=== PATIENT | female | born 1940 | race Caucasian/White ===

== ENCOUNTER 2019-03-22 21:31 | Observation (INO) | payer MEDICARE, OTHER ==
[~2019-03-22] VITALS: Ht 149.9 cm; Wt 91.8 kg
[2019-03-22] MEDS ORDERED: LASIX20 MG PO (21:51)
[2019-03-22] MEDS ORDERED: BENICAR40 MG PO (21:52)
[2019-03-22] MEDS ORDERED: K-TAB ER20 MEQ PO (21:53)
--- NOTE | 2019-03-23 03:21 | NUR ---
ASSESSMENT COMPLETE. PT A/OX4, DENIES CHEST PAIN, SOB, AND DYSPNEA AT THIS TIME. VSS, PT ON RA. PT ON TELE #6, GOING BETWEEN SINUS RHYTHM AND AFIB, SINUS MIRANDA AT TIMES. LUNG SOUNDS CLEAR, PT APPEARS COMFORTABLE, NO SIGN OF DISTRESS NOTED. CALL LIGHT IN REACH. PT SALINE LOCKED, IV SITE WNL. NO ADDITIONAL NEEDS.
--- NOTE | 2019-03-23 03:59 | NUR ---
INFORMED BY RENETTA GORE THAT PT REPORTS LEG CRAMPS. THIS RN IN ROOM TO ASSESS PT. PRN TLENOL OFFERED, PT KINDLY DECLINES AND STATES, "I HAVN'T TRIED TYLENOL, I USUALLY TAKE MAGNESIUM". WILL MONITOR DAYSHIFT RN AT REPORT TO ASK MD FOR PRN MED FOR CRAMPS. PT AGREES TO PLAN. NO ADDITIONAL NEEDS. CALL LIGHT IN REACH. CPOX IN PLACE, PT ON RA. O2 SAT AND HR WNL.
--- NOTE | 2019-03-23 05:03 | NUR ---
prn tylenol given for 4/10 pain in bilateral legs r/t cramps. no further needs, manual writer january in room to complete vs.
--- NOTE | 2019-03-23 05:34 | NUR ---
HELPED PT TO THE BATHROOM AND BACK TO BED. VITALS AND I&OS DONE AND CHARTED. BEDSIDE TABLE AND CALL LIGHT IN REACH.
--- NOTE | 2019-03-23 06:24 | NUR ---
PT ARRIVED TO THE UNIT AROUND 0200. PT A/OX4, VSS. PT ON TELE #6, SWAPS BETWEEN AFIB AND SINUS RHYTHM. NO SOB OR CHEST PAIN SINCE ARRIVAL. SBA, USES CALL LIGHT APPROPERAITELY. SALINE LOCKED. TYLENOL GIVEN X1 FOR PAIN R/T CRAMPS IN LEGS.
--- NOTE | 2019-03-23 07:20 | NUR ---
RECIEVED BEDSIDE REPORT FROM AMY DUONG. PT IN BED. PERSONAL SUPPLIES AND CALL LIGHT IN REACH.
--- NOTE | 2019-03-23 08:56 | NUR ---
PT IN BED, TOLERATED BREAKFAST WELL. DENIES PAIN, DENIES SHORTNESS OF BREATH. ALERT, ORIENTED X 4. DENIED NEEDS AT THIS TIME. PERSONAL SUPPLIES AND CALL LIGHT IN REACH.
[2019-03-23] MEDS ORDERED: METOPROLOL SUCC25 MG PO (11:07)
[2019-03-23] MEDS ORDERED: ASPIRIN325 MG PO (11:07)
--- NOTE | 2019-03-23 15:40 | EKG ---
[facility] [address] [place], [place] [address] Signed Atrial fibrillation with rapid ventricular response Cannot rule out Anterior infarct , age undetermined Abnormal ECG No previous ECGs available Confirmed by PANCHO ACOSTA DO ([id number]) on 03/23/2019 3:40:37 PM Electronically Signed By: PANCHO ACOSTA DO 03/23/19 1540 PATIENT NAME: TAMMY TY Electrocardiogram DATE OF : 38 PHYSICIAN: PANCHO ACOSTA DO REPORT #: [id number] REPORT IS CONFIDENTIAL AND NOT TO BE RELEASED WITHOUT AUTHORIZATION
== END 2019-03-23 12:50 | disposition home or self-care (01) ==
LOC: ED 21:31 → MS 03-23 02:11
PROVIDERS: ADMIT Student in an Organized Health Care Education/Training Program
DX: I48.91 Unspecified atrial fibrillation (principal); I10 Essential (primary) hypertension; F39 Unspecified mood [affective] disorder; Z79.82 Long term (current) use of aspirin; Z79.899 Other long term (current) drug therapy
CPT/HCPCS: 71045; 80053; 81001; 83735; 83880; 84443; 84484; 85025; 93005; 93010; 96374; 96375; 99285-25; G0378; J1650; J1940

== ENCOUNTER 2022-09-15 13:30 | Emergency (ER) | payer MEDICARE, OTHER ==
[~2022-09-15] VITALS: Ht 149.9 cm; Wt 98.0 kg
[~2022-09-15 13:30] MED LIST: ASPIRIN325 MG PO; BENICAR40 MG PO; K-TAB ER20 MEQ PO; LASIX20 MG PO; METOPROLOL SUCC25 MG PO
[2022-09-15] MEDS ORDERED: ELIQUIS5 MG PO (17:13)
[2022-09-15] MEDS ORDERED: GABAPENTIN300 MG PO (17:14)
[2022-09-15] MEDS ORDERED: SPIRONOLACTONE25 MG PO (17:15)
[2022-09-15] MEDS ORDERED: ELIQUIS2.5 MG PO (17:15)
[2022-09-15] MEDS ORDERED: PROPRANOLOL HCL60 MG PO (17:15)
[2022-09-15] MEDS ORDERED: PREDNISONE20 MG PO (18:46)
== END 2022-09-15 18:59 | disposition home or self-care (01) ==
LOC: ED 13:30
DX: M17.12 Unilateral primary osteoarthritis, left knee (principal); I10 Essential (primary) hypertension; Z79.899 Other long term (current) drug therapy; Z96.651 Presence of right artificial knee joint
CPT/HCPCS: 73560; 99283-25; J7512

== ENCOUNTER 2023-05-29 17:51 | Observation (INO) | payer MEDICARE, OTHER ==
[~2023-05-29] VITALS: Ht 149.9 cm; Wt 85.6 kg
--- OUTSIDE RECORDS SUMMARY | ~2023-05-29 | XMS | Continuity of Care Document ---
Demographics + + + | Address | [id number] [place] [address] | | | [place] [address] | + + + | Preferred Language | Unknown | + + + | Marital Status | | + + + | Hinduism Affiliation | Unknown | + + + | Race | White | + + + | Ethnic Group | Not or | + + + Author + + + | Author | [facility] | + + + | Organization | [facility] | + + + | Address | [address] | | | [place] [address] | + + + | Phone | | + + + Care Team Providers + + + + | Care Process Pumper Name | Role | Phone | + + + + Unavailable | Unavailable | + + + + Unavailable | Unavailable | + + + + Unavailable | Unavailable | + + + + Allergies and Intolerances + + + + + + | date | description | facility | reaction | severity | + + + + + + | (no date) | No Known | [facility] | (no reaction) | (no severity) | | | Allergies | | | | + + + + + + Encounters No information. Functional Status No information. Immunizations No information. Medications + + + + | date | description | facility | + + + + | 2022-09-16 00:00 | APIXABAN | [facility] | + + + + | 2023-04-06 00:00 | APIXABAN | [facility] | + + + + | 2022-09-16 00:00 | GABAPENTIN | [facility] | + + + + | 2023-04-06 00:00 | GABAPENTIN | [facility] | + + + + | 2022-09-15 00:00 | predniSONE | [facility] | + + + + | 2022-09-16 00:00 | SPIRONOLACTONE | [facility] | + + + + | 2023-04-06 00:00 | SPIRONOLACTONE | [facility] | + + + + | 2022-09-16 00:00 | OLMESARTAN MEDOXOMIL | [facility] | + + + + | 2023-04-06 00:00 | OLMESARTAN MEDOXOMIL | [facility] | + + + + | 2023-04-06 00:00 | DILTIAZEM HCL | [facility] | + + + + | 2022-09-16 00:00 | PROPRANOLOL HCL | [facility] | + + + + | 2023-04-06 00:00 | PROPRANOLOL HCL | [facility] | + + + + Problems + + + + | date | description | facility | + + + + | 2019-03-23 00:00 | New onset atrial | [facility] | | | fibrillation | | + + + + | 2019-03-23 00:00 | New onset atrial | [facility] | | | fibrillation | | + + + + | 2022-09-15 00:00 | Arthritis of left knee | [facility] | + + + + | 2022-09-15 00:00 | Arthritis of left knee | [facility] | + + + + | 2022-09-15 13:31 | Essential (primary) | [facility] | | | hypertension | | + + + + | 2022-09-15 13:31 | UNILATERAL PRIMARY | [facility] | | | OSTEOARTHRITIS, LEFT KNEE | | + + + + | 2022-09-15 13:31 | PAIN IN LEFT KNEE | [facility] | + + + + | 2022-09-15 13:31 | OTHER TEST CLERK (CURRENT) | [facility] | | | DRUG THERAPY | | + + + + | 2022-09-15 13:31 | 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 | | + + + + | 2023-04-06 00:00 | Atrial fibrillation with | [facility] | | | rapid ventricular response | | + + + + | 2023-04-06 00:00 | Sprain of left ankle | [facility] | + + + + | 2023-04-06 15:25 | Essential (primary) | [facility] | | | hypertension | | + + + + | 2023-04-06 15:25 | UNSPECIFIED ATRIAL | [facility] | | | FIBRILLATION | | + + + + | 2023-04-06 15:25 | PAIN IN LEFT ANKLE AND | [facility] | | | JOINTS OF LEFT FOOT | | + + + + | 2023-04-06 15:25 | SPRAIN OF UNSPECIFIED | [facility] | | | LIGAMENT OF LEFT ANKLE, | | | | INIT | | + + + + | 2023-04-06 15:25 | OTHER FALL ON SAME LEVEL, | [facility] | | | INITIAL ENCOUNTER | | + + + + | 2023-04-06 15:25 | OTHER JAIL (CURRENT) | [facility] | | | DRUG THERAPY | | + + + + Procedures No information. Results/Labs +--------+--------+ +---------+--------+---------+ | test | date | facility | value | unit | notes | +--------+--------+ +---------+--------+---------+ + + | Result panel 1 | + + + + + +-------+ + + | | 2023-04-06 | [facility] | 9.9 | (missing) | (missing) | | (unavailable | [facility]33[facility] | | | | + + + +-------+ + + + + | Result panel 2 | + + + + + +--------+ + + | | 2023-04-06 | [facility] | 78.8 | (missing) | (missing) | | (unavailable | [facility] | | | | + + + +--------+ + + + + | Result panel 3 | + + + + + +--------+ + + | | 2023-04-06 | [facility] | 13.6 | (missing) | (missing) | | (unavailable | [facility] | | | | + + + +--------+ + + + + | Result panel 4 | + + + + + +-------+ + + | | 2023-04-06 | [facility] | 6.2 | (missing) | (missing) | | (unavailable | [facility] | | | | + + + +-------+ + + + + | Result panel 5 | + + + + + +-------+ + + | | 2023-04-06 | [facility] | 0.8 | (missing) | (missing) | | (unavailable | [facility] | | | | + + + +-------+ + + + + | Result panel 6 | + + + + + +-------+ + + | | 2023-04-06 | [facility] | 0.6 | (missing) | (missing) | | (unavailable | [facility] | | | | + + + +-------+ + + + + | Result panel 7 | + + + + + +--------+ + + | | 2023-04-06 | [facility] | 4.57 | (missing) | (missing) | | (unavailable | [facility] | | | | + + + +--------+ + + + + | Result panel 8 | + + + + + +--------+ + + | | 2023-04-06 | [facility] | 14.1 | (missing) | (missing) | | (unavailable | [facility] | | | | + + + +--------+ + + + + | Result panel 9 | + + + + + +-------+---------+ + | | 2023-04-06 | [facility] | 142 | mg/dL | (missing) | | (unavailable | [facility] | | | | + + + +-------+---------+ + + + | Result panel 10 | + + + + + +------+---------+ + | | 2023-04-06 | [facility] | 24 | mg/dL | (missing) | | (unavailable | [facility] | | | | + + + +------+---------+ + + + | Result panel 11 | + + + + + +--------+---------+ + | | 2023-04-06 | [facility] | 1.13 | mg/dL | (missing) | | (unavailable | [facility] | | | | + + + +--------+---------+ + + + | Result panel 12 | + + + + + +------+ + + | | 2023-04-06 | [facility] | 48 | (missing) | (missing) | | (unavailable | [facility] | | | | + + + +------+ + + + + | Result panel 13 | + + + + + +---------+ + + | | 2023-04-06 | [facility] | 21.23 | (missing) | (missing) | | (unavailable | [facility] | | | | + + + +---------+ + + + + | Result panel 14 | + + + + + +-------+ + + | | 2023-04-06 | [facility] | 139 | (missing) | (missing) | | (unavailable | [facility] | | | | + + + +-------+ + + + + | Result panel 15 | + + + + + +--------+ + + | | 2023-04-06 | [facility] | 41.7 | (missing) | (missing) | | (unavailable | [facility] | | | | + + + +--------+ + + + + | Result panel 16 | + + + + + +-------+ + + | | 2023-04-06 | [facility] | 4.1 | (missing) | (missing) | | (unavailable | 1633:07 [facility] | | | | + + + +-------+ + + + + | Result panel 17 | + + + + + +-------+ + + | | 2023-04-06 | [facility] | 106 | (missing) | (missing) | | (unavailable | [facility] | | | | + + + +-------+ + + + + | Result panel 18 | + + + + + +------+ + + | | 2023-04-06 | [facility] | 25 | (missing) | (missing) | | (unavailable | [facility] | | | | + + + +------+ + + + + | Result panel 19 | + + + + + +--------+ + + | | 2023-04-06 | [facility] | 12.1 | (missing) | (missing) | | (unavailable | [facility] | | | | + + + +--------+ + + + + | Result panel 20 | + + + + + +-------+---------+ + | | 2023-04-06 | [facility] | 8.8 | mg/dL | (missing) | | (unavailable | [facility] | | | | + + + +-------+---------+ + + + | Result panel 21 | + + + + + +-------+---------+ + | | 2023-04-06 | [facility] | 1.9 | mg/dL | (missing) | | (unavailable | [facility] | | | | + + + +-------+---------+ + + + | Result panel 22 | + + + + + +-------+ + + | | 2023-04-06 | [facility] | 7.0 | (missing) | (missing) | | (unavailable | [facility] | | | | + + + +-------+ + + + + | Result panel 23 | + + + + + +-------+ + + | | 2023-04-06 | [facility] | 3.2 | (missing) | (missing) | | (unavailable | [facility] | | | | + + + +-------+ + + + + | Result panel 24 | + + + + + +-------+ + + | | 2023-04-06 | [facility] | 3.8 | (missing) | (missing) | | (unavailable | [facility] | | | | + + + +-------+ + + + + | Result panel 25 | + + + + + +--------+ + + | | 2023-04-06 | [facility] | 0.84 | (missing) | (missing) | | (unavailable | [facility] | | | | + + + +--------+ + + + + | Result panel 26 | + + + + + +--------+ + + | | 2023-04-06 | [facility] | 91.1 | (missing) | (missing) | | (unavailable | [facility] | | | | + + + +--------+ + + + + | Result panel 27 | + + + + + +-------+ + + | | 2023-04-06 | [facility] | 1.0 | (missing) | (missing) | | (unavailable | [facility] | | | | + + + +-------+ + + + + | Result panel 28 | + + + + + +------+ + + | | 2023-04-06 | [facility] | 26 | (missing) | (missing) | | (unavailable | [facility] | | | | + + + +------+ + + + + | Result panel 29 | + + + + + +------+ + + | | 2023-04-06 | [facility] | 33 | (missing) | (missing) | | (unavailable | [facility] | | | | + + + +------+ + + + + | Result panel 30 | + + + + + +------+ + + | | 2023-04-06 | [facility] | 64 | (missing) | (missing) | | (unavailable | [facility] | | | | + + + +------+ + + + + | Result panel 31 | + + + + + +-------+ + + | | 2023-04-06 | [facility] | 8.9 | (missing) | (missing) | | (unavailable | [facility] | | | | + + + +-------+ + + + + | Result panel 32 | + + + + + +--------+ + + | | 2023-04-06 | [facility] | 30.8 | (missing) | (missing) | | (unavailable | [facility] | | | | + + + +--------+ + + + + | Result panel 33 | + + + + + +--------+ + + | | 2023-04-06 | [facility] | 33.8 | (missing) | (missing) | | (unavailable | [facility] | | | | + + + +--------+ + + + + | Result panel 34 | + + + + + +--------+ + + | | 2023-04-06 | [facility] | 13.5 | (missing) | (missing) | | (unavailable | [facility] | | | | + + + +--------+ + + + + | Result panel 35 | + + + + + +-------+ + + | | 2023-04-06 | [facility] | 224 | (missing) | (missing) | | (unavailable | [facility] | | | | + + + +-------+ + + + + | Result panel 36 | + + + + + + + + + | | 2023-04-06 | [facility] | YELLOW | (missing) | (missing) | | (unavailable | 18[facility]03:07 [facility] | | | | + + + + + + + + + | Result panel 37 | + + + + + +---------+ + + | | 2023-04-06 | [facility] | CLEAR | (missing) | (missing) | | (unavailable | [facility]03:07 [facility] | | | | + + + +---------+ + + + + | Result panel 38 | + + + + + + + + + | | 2023-04-06 | [facility] | NEGATIVE | (missing) | (missing) | | (unavailable | [facility]03:[facility] | | | | + + + + + + + + + | Result panel 39 | + + + + + + + + + | | 2023-04-06 | [facility] | POSITIVE | (missing) | (missing) | | (unavailable | 18::07 [facility] | | | | + + + + + + + + + | Result panel 40 | + + + + + +---------+ + + | | 2023-04-06 | [facility] | TRACE | (missing) | (missing) | | (unavailable | 18::07 [facility] | | | | + + + +---------+ + + + + | Result panel 41 | + + + + + + + + + | | 2023-04-06 | [facility] | >=1.030 | (missing) | (missing) | | (unavailable | [facility]03:07 [facility] | | | | + + + + + + + + + | Result panel 42 | + + + + + + + + + | | 2023-04-06 | [facility] | NEGATIVE | (missing) | (missing) | | (unavailable | 18::07 [facility] | | | | + + + + + + + + + | Result panel 43 | + + + + + +-------+ + + | | 2023-04-06 | [facility] | 5.5 | (missing) | (missing) | | (unavailable | [facility]03:07 [facility] | | | | + + + +-------+ + + + + | Result panel 44 | + + + + + + + + + | | 2023-04-06 | [facility] | NEGATIVE | (missing) | (missing) | | (unavailable | [facility]03:07 [facility] | | | | + + + + + + + + + | Result panel 45 | + + + + + +-------+ + + | | 2023-04-06 | [facility] | 1.0 | (missing) | (missing) | | (unavailable | [facility]03:07 [facility] | | | | + + + +-------+ + + + + | Result panel 46 | + + + + + + + + + | | 2023-04-06 | [facility] | NEGATIVE | (missing) | (missing) | | (unavailable | [facility]03[facility] | | | | + + + + + + + + + | Result panel 47 | + + + + + +---------+ + + | | 2023-04-06 | [facility] | TRACE | (missing) | (missing) | | (unavailable | [facility]03:07 [facility] | | | | + + + +---------+ + + + + | Result panel 48 | + + + + + +-------+ + + | | 2023-04-06 | [facility] | 0-1 | (missing) | (missing) | | (unavailable | [facility]03[facility] | | | | + + + +-------+ + + + + | Result panel 49 | + + + + + +--------+ + + | | 2023-04-06 | [facility] | 7-11 | (missing) | (missing) | | (unavailable | [facility]03[facility] | | | | + + + +--------+ + + + + | Result panel 50 | + + + + + + + + + | | 2023-04-06 | [facility] | SQUAMOUS 4+ | (missing) | (missing) | | (unavailable | [facility]03:07 [facility] | | | | + + + + + + + + + | Result panel 51 | + + + + + + + + + | | 2023-04-06 | [facility] | NONE SEEN | (missing) | (missing) | | (unavailable | [facility]03:07 [facility] | | | | + + + + + + + + + | Result panel 52 | + + + + + +------+ + + | | 2023-04-06 | [facility] | 1+ | (missing) | (missing) | | (unavailable | [facility]03[facility] | | | | + + + +------+ + + + + | Result panel 53 | + + + + + + + + + | | 2023-04-06 | [facility] | NONE SEEN | (missing) | (missing) | | (unavailable | 18:: [facility] | | | | + + + + + + + + + | Result panel 54 | + + + + + +------+ + + | | 2023-04-06 | [facility] | No | (missing) | (missing) | | (unavailable | 18::07 [facility] | | | | + + + +------+ + + Social History No information. Vital Signs + + + +---------+ | date | measurement | value | units | + + + +---------+ | 2022-09-15 00:00 | BMI | 43.6 | kg/m2 | + + + +---------+ | 2022-09-15 00:00 | BP_diastolic | 64 | mmHg | + + + +---------+ | 2022-09-15 00:00 | BP_systolic | 142 | mmHg | + + + +---------+ | 2022-09-15 00:00 | heart_rate | 56 | /min | + + + +---------+ | 2022-09-15 00:00 | height_metric | 149.86 | cm | + + + +---------+ | 2022-09-15 00:00 | height_standard | 59 | in | + + + +---------+ | 2022-09-15 00:00 | o2_saturation | 99 | % | + + + +---------+ | 2022-09-15 00:00 | respiration_rate | 19 | /min | + + + +---------+ | 2022-09-15 00:00 | temperature_metric | 36.89 | C | | | | | | + + + +---------+ | 2022-09-15 00:00 | | 98.4 | F | | | temperature_standar | | | | | d | | | + + + +---------+ | 2022-09-15 00:00 | weight_metric | 97.98 | kg | + + + +---------+ | 2022-09-15 00:00 | weight_standard | 216 | lb | + + + +---------+ | 2022-09-15 00:00 | weight_standard | 216.01 | lb | + + + +---------+ | 2023-04-06 00:00 | BMI | 43.6 | kg/m2 | + + + +---------+ | 2023-04-06 00:00 | BP_diastolic | 84 | mmHg | + + + +---------+ | 2023-04-06 00:00 | BP_systolic | 96 | mmHg | + + + +---------+ | 2023-04-06 00:00 | heart_rate | 99 | /min | + + + +---------+ | 2023-04-06 00:00 | height_metric | 149.86 | cm | + + + +---------+ | 2023-04-06 00:00 | height_standard | 59 | in | + + + +---------+ | 2023-04-06 00:00 | o2_saturation | 95 | % | + + + +---------+ | 2023-04-06 00:00 | respiration_rate | 20 | /min | + + + +---------+ | 2023-04-06 00:00 | temperature_metric | 36.61 | C | | | | | | + + + +---------+ | 2023-04-06 00:00 | | 97.9 | F | | | temperature_standar | | | | | d | | | + + + +---------+ | 2023-04-06 00:00 | weight_metric | 97.98 | kg | + + + +---------+ | 2023-04-06 00:00 | weight_standard | 216 | lb | + + + +---------+ | 2023-04-06 00:00 | weight_standard | 216.01 | lb | + + + +---------+"
--- OUTSIDE RECORDS SUMMARY | ~2023-05-29 | XMS | Continuity of Care Document ---
Demographics + + + | Address | [address] [place] [address] | | | [place] [address] | + + + | Preferred Language | Unknown | + + + | Marital Status | | + + + | Cheondoism Affiliation | Unknown | + + + | Race | White | + + + | Ethnic Group | Not or | + + + Author + + + | Author | [facility] | + + + | Organization | [facility] | + + + | Address | [address] | | | [place] [address] | + + + | Phone | | + + + Care Team Providers + + + + | Care Lead C Developer Name | Role | Phone | + [...] + | 2022-09-16 00:00 | APIXABAN | [facility] | + + + + | 2023-04-06 00:00 | APIXABAN | [facility] | + + + + | 2022-09-16 00:00 | GABAPENTIN | [facility] | + + + + | 2023-04-06 00:00 | GABAPENTIN | [facility] | + + + + | 2022-09-15 00:00 | predniSONE | [facility] | + + + + | 2022-09-16 00:00 | SPIRONOLACTONE | [facility] | + + + + | 2023-04-06 00:00 | SPIRONOLACTONE | [facility] | + + + + | 2022-09-16 00:00 | OLMESARTAN MEDOXOMIL | [facility] | + + + + | 2023-04-06 00:00 | OLMESARTAN MEDOXOMIL | [facility] | + + + + | 2023-04-06 00:00 | DILTIAZEM HCL | [facility] | + + + + | 2022-09-16 00:00 | PROPRANOLOL HCL | [facility] | + + + + | 2023-04-06 00:00 | PROPRANOLOL HCL | [facility] | + + + + Problems + + + + | date | description | facility | + + + + | 2019-03-23 00:00 | New onset atrial | [facility] | | | fibrillation | | + + + + | 2019-03-23 00:00 | New onset atrial | [facility] | | | fibrillation | | + + + + | 2022-09-15 00:00 | Arthritis of left knee | [facility] | + + + + | 2022-09-15 00:00 | Arthritis of left knee | [facility] | + + + + | [...] + + | 2022-09-15 13:31 | OTHER ENGLISH DRAWER (CURRENT) | [facility] | | | DRUG THERAPY | | + + + + | 2022-09-15 13:31 | 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 | | + + + + | 2023-04-06 00:00 | Atrial fibrillation with | [facility] | | | rapid ventricular response | | + + + + | 2023-04-06 00:00 | Sprain of left ankle | [facility] | + + + + | [...] + + | 2023-04-06 15:25 | OTHER [facility] (CURRENT) | [facility] | | | DRUG [...]
--- OUTSIDE RECORDS SUMMARY | ~2023-05-29 | XMS | Continuity of Care Document ---
Demographics + + + | Address | [id number] [place] [address] | | | [place] [address] | + + + | Preferred Language | Unknown | + + + | Marital Status | | + + + | Denominational Affiliation | Unknown | + + + | Race | White | + + + | Ethnic Group | Not or | + + + Author + + + | Author | [facility] | + + + | Organization | [facility] | + + + | Address | [address] | | | [place] [address] | + + + | Phone | | + + + Care Team Providers + + + + | Care Customer Success Manager Name | Role | Phone | + [...] + | 2022-09-16 00:00 | APIXABAN | [facility] | + + + + | 2023-04-06 00:00 | APIXABAN | [facility] | + + + + | 2022-09-16 00:00 | GABAPENTIN | [facility] | + + + + | 2023-04-06 00:00 | GABAPENTIN | [facility] | + + + + | 2022-09-15 00:00 | predniSONE | [facility] | + + + + | 2022-09-16 00:00 | SPIRONOLACTONE | [facility] | + + + + | 2023-04-06 00:00 | SPIRONOLACTONE | [facility] | + + + + | 2022-09-16 00:00 | OLMESARTAN MEDOXOMIL | [facility] | + + + + | 2023-04-06 00:00 | OLMESARTAN MEDOXOMIL | [facility] | + + + + | 2023-04-06 00:00 | DILTIAZEM HCL | [facility] | + + + + | 2022-09-16 00:00 | PROPRANOLOL HCL | [facility] | + + + + | 2023-04-06 00:00 | PROPRANOLOL HCL | [facility] | + + + + Problems + + + + | date | description | facility | + + + + | 2019-03-23 00:00 | New onset atrial | [facility] | | | fibrillation | | + + + + | 2019-03-23 00:00 | New onset atrial | [facility] | | | fibrillation | | + + + + | 2022-09-15 00:00 | Arthritis of left knee | [facility] | + + + + | 2022-09-15 00:00 | Arthritis of left knee | [facility] | + + + + [...] + + | 2022-09-15 13:31 | OTHER SCREENING REPRESENTATIVE (CURRENT) | [facility] | | | DRUG THERAPY | | + + + + | 2022-09-15 13:31 | 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
[~2023-05-29 17:51] MED LIST changes: +DILTIAZEM ER60 MG PO; +ELIQUIS2.5 MG PO; +ELIQUIS5 MG PO; +GABAPENTIN300 MG PO; +PREDNISONE20 MG PO; +PROPRANOLOL HCL60 MG PO; +SPIRONOLACTONE25 MG PO
[2023-05-29 18:14] LABS: MCH 29.8 (27-36); MCHC 32.6 g/dl (30-36)
[2023-05-29 18:22] LABS: BASOPHILS 0.2 % (0-2); EOSINOPHILS 2.7 % (0-6); HEMATOCRIT 44.9 % (35.0-50.0); HEMOGLOBIN 14.6 g/dL (12.0-18.0); LYMPHOCYTES 23.2 % (24-44); MCV 91.1 fl (81-99); NEUTROPHILS 67.9 % (39-80); PLATELET COUNT 197 K/uL (140-440); RBC 4.92 M/ul (4.3-5.7)
[2023-05-29 18:26] LABS: INR 1.18 (0.80-1.30); PROTIME 14.6 Sec (11.2-14.2)
[2023-05-29 18:28] LABS: PARTIAL THROMBOPLASTIN TIME 28.3 Sec (22.9-41.3)
[2023-05-29 18:33] LABS: ALBUMIN 3.4 g/dL (3.4-5.0); ALBUMIN/GLOBULIN RATIO 0.89 (1.1-2.4); ANION GAP 12.3 (7-21); BILIRUBIN, TOTAL 0.6 ng/dL (0.2-1.0); BUN/CREATININE RATIO 24.48 (6.0-28.6); CALCIUM 9.4 mg/dL (8.5-10.1); CREATININE, SERUM 0.98 mg/dL (0.55-1.02); POTASSIUM 4.3 mmol/L (3.5-5.1); PROTEIN, TOTAL 7.2 g/dL (6.4-8.2)
[2023-05-29 20:45] VITALS: BP 144/110
--- NOTE | 2023-05-29 21:10 | NUR ---
PT ARRIVES TO [facility] FLOOR WITH ARROW POINT ATTACHER MONTRELL. PRIMARY RN IN ROOM FOR REPORT. VS COMPLETE. PRIMARY RN PHONE CALLS MD TO NOTIFY VS OUT OF PARAMETER, HR AND BP. NEW ORDERS RECEIVED. pt AMBULATORY TO RESTROOM, SBA. BACK IN BED. ORIENTATION TO ROOM PROVIDED. CALL LIGHT WITHIN REACH.
--- NOTE | 2023-05-29 21:15 | NUR ---
PT HEART RATE 127 AND SUSTAINING AT THIS TIME AND BP 144/110. NO COMPLAINTS OF CHEST PAIN OR DIZZINESS. PT SITTING COMFORTABLY IN BED WATCHING TV. BREATHING EVEN AND UNLABORED. DR. TANG NOTIFIED OF PT BP AND HEART RATE. ORDERS GIVEN. WILL CONTINUE TO MONITOR.
--- NOTE | 2023-05-29 21:18 | NUR ---
PATIENTS VITALS TAKEN AND RECORDED. PATIENTS IV MEDICATIONS GIVEN PER ORDER. PATIENT IS ON TELE. PATIENT IS RESTING IN BED WATCHING TV. PATIENT DENIES ANY CHEST PAIN, PRESSURE OR TIGHTNESS. PATIENT DENIES ANY HEART PALPITATIONS. PATIENT DENIES ANY SOB. PATIENT DENIES ANY NEEDS. BED ALARM PLACED ON FOR PATIENT SAFETY.
[2023-05-30] VITALS (16 sets, daily range): BP systolic 102–168; BP diastolic 42–117
--- NOTE | 2023-05-30 | NUR ---
bed alarming. patient got up to use the bathroom. patient voided approx.25ml in the hat. personal pants and underwear removed and provided with pull ups. patient stated "i wonder if doctor gave me somethign for anxiety". this ballistician stated " i will find out with your primary nurse". patient wanting to be up in the chair. patient is up in the chair with alarm set. after a few minutes patient in a hurry stated "i need to use the toilet". this ballistician noticed patient is walking well steady on her gait. patient did not void. patient stated "its an urge to pee". this ballistician notified primary rn. patient is up in the chair with call light within reach and alarm on.
--- NOTE | 2023-05-30 01:15 | NUR ---
PT HEART RATE SUSTAINING AT 127. BP 168/117 AT THIS TIME. PT DENIES DIZZINESS BUT STATES SHE JUST "DOES NOT FEEL WELL" OTHER VS WNL. DR. TANG NOTIFIED OF PATIENT VITAL SIGNS. ORDERS FOR 10MG OF LOPRESSOR IV. WILL CONTINUE TO MONITOR.
--- NOTE | 2023-05-30 03:00 | NUR ---
VS TAKEN WITH HEART RATE 127 AND BP 145/103. PT RESTING COMFORTABLY IN BED WATCHING TV. NO SIGNS OF ACUTE DISTRESS. DR. TANG NOTIFIED OF PT'S BP AND HEART RATE. ORDERS FOR 10MG IV METOPROLOL Q6. WILL CONTINUE TO MONITOR.
[2023-05-30 05:58] LABS: EOSINOPHILS 1.8 % (0-6); HEMATOCRIT 43.3 % (35.0-50.0); HEMOGLOBIN 14.2 g/dL (12.0-18.0); LYMPHOCYTES 17.4 % (24-44); MCH 29.7 (27-36); MCHC 32.8 g/dl (30-36); MCV 90.6 fl (81-99); MONOCYTES 4.5 % (0-12); NEUTROPHILS 75.3 % (39-80); PLATELET COUNT 176 K/uL (140-440); RBC 4.79 M/ul (4.3-5.7); RDW 13.6 (10.5-15.0)
[2023-05-30 06:14] LABS: ANION GAP 15.5 (7-21); BUN/CREATININE RATIO 27.84 (6.0-28.6); CALCIUM 9.3 mg/dL (8.5-10.1); CREATININE, SERUM 0.79 mg/dL (0.55-1.02); POTASSIUM 4.5 mmol/L (3.5-5.1)
--- NOTE | 2023-05-30 07:26 | EKG ---
[facility] [address] [place] [address] Signed Atrial flutter with 2:[address] and T wave abnormality Abnormal ECG When compared with ECG of 06-APR-2023 16:58, Atrial flutter has replaced Wide QRS tachycardia Confirmed by COURT TANG MD ([id number]) on 05/30/2023 7:25:50 AM Electronically Signed By: COURT TANG 05/30/23 0726 PATIENT NAME: MELONYGEOFFDinora AVILA Electrocardiogram DATE OF : 38 PHYSICIAN: COURT TANG REPORT #: [id number] REPORT IS CONFIDENTIAL AND NOT TO BE RELEASED WITHOUT AUTHORIZATION
--- NOTE | 2023-05-30 07:30 | NUR ---
REPORT RECEIVED FROM NIGHT RN - PT RESTING IN BED ON SIDE, RATE 130'S ON TELE SCREEN. CALL LIGHT AT SIDE.
--- NOTE | 2023-05-30 07:58 | NUR ---
PATIENT IN BED RESTING AT THIS TIME. RN IN ROOM DOING MORNING ROUNDS. CALL LIGHT IN REACH. NO FURTHER NEEDS AT THIS TIME.
--- NOTE | 2023-05-30 08:00 | NUR ---
ASSESSMENT COMPLETE - PT NOTED TO BE IN AFLUTTER UPON ASSESSMENT OF CARDIAC STRIP, NOTIFIED IN RN STATION. 10MG IV LOPRESSOR PUSHED WITH NO RESPONSE. PT ADMITS TO SOME ANXIETY AND SOB, DENIES FEELING CHEST PAIN OR PALPATATIONS. NO NAUSEA. DENIES A HISTORY OF FEELING PALPATATIONS EVER WITH AFIB DIAGNOSIS. CRACKLES THROUGHOUT LUNG SINCLAIR, RIGHT WORSE THAN LEFT. STEADY ON FEET TO BATHROOM AND CHAIR, STATES SHE USES FURNITURE AT HOME TO STEADY.
[2023-05-30] MEDS ORDERED: OLMESARTAN MEDO40 MG PO (09:00)
--- NOTE | 2023-05-30 09:00 | NUR ---
PT UPDATED ON POC TO MOVE TO CCU TO PREFORM CHEMICAL CARDIOVERSION PER DR. GILES DISCUSSION AT AM MEETING. PT STATES UNDERSTANDING. ALL QUESTIONS ANSWERED. RATE REMAINS ELEVATED IN 130'S - ORAL MEDICATIONS ADMINSITERED, SEE EMAR.
--- NOTE | 2023-05-30 10:20 | NUR ---
PT TRANSFERED VIA BED TO CCU - REPORT GIVEN TO ML REYES. PT ANXIOUS, REASSURED OF POC AND STATUS. ALL BELONGINGS BROUGHT TO CCU.
--- NOTE | 2023-05-30 10:25 | NUR ---
pt to ccu via bed from room 120 with report from yuan candelario, stable, hr 133, 96% ra, 135/100 ( 111) temp 98.6. discussed plan of care - pt is nervous- assisted pt to talk with family on phone, denies need to void at this time, r arm with iv tko ns. plan for adenosine push.
--- NOTE | 2023-05-30 11:05 | NUR ---
pharmacy felicity in to draw up meds after discussion with dr. anguiano. ccu team is in for procedure of medication. pt is comforted by staff yuan who is framiliar with pt.
--- NOTE | 2023-05-30 11:07 | NUR ---
rt ikki in to place 2l nc on pt in anticipation of meds. rr 21 hr 131, co2 29.
--- NOTE | 2023-05-30 11:17 | NUR ---
DR TANG IN ROOM WITH CCU TEAM: 1119 6 MG ADENOSINE PUSH IV BY THIS RN PER ORDER WITH DR TANG AND PHARMACY AT BEDSIDE, PT ANXIOUS, REASSURED. HR REMAINED ELEVATED 1121 12 MG ADENOSINE PUSH BY THIS RN IV PER ORDER AGAIN WITH DR TANG AND PHARMACY PRESENT. PT NAUSEATED TURNED TO R SIDE, ORAL SUCTION, SECREATIONS. RESOLVED REPOSITIONED PT HOB UP IN BED. 1125 DENIES SYMPTOMS, 1129 - CHEST TIGHT , SOB, EKG STAT IN ROOM WITH DR PRESENT. 1132- NITRO GIVEN PO 5/10 CHEST PAIN, 1134 CP IMPROVED, PT TALKING AND ALERT. HR 120'S
--- NOTE | 2023-05-30 11:48 | NUR ---
PT CHEST PAIN RESOLVED 0 - LAB IN FOR STAT DRAW, BMP, CBC, TROPONIN, DR TANG IN WAITING ROOM TALKING TO PT DAUGHTER. PT ALERT AND ORIENTED DENIES NEEDS, IV SL R AC. PO MEDS ORDERED FOR BID.
--- NOTE | 2023-05-30 11:56 | NUR ---
DR TANG IN ROOM WITH PT AND DAUGHTER, CHANGE MED 200 MG PO AMIODERONE NOW AND ADD BNP TO LABS.
[2023-05-30 12:00] LABS: BASOPHILS 0.7 % (0-2); EOSINOPHILS 1.5 % (0-6); HEMATOCRIT 40.9 % (35.0-50.0); HEMOGLOBIN 13.5 g/dL (12.0-18.0); LYMPHOCYTES 16.1 % (24-44); MCHC 33.1 g/dl (30-36); MCV 90.6 fl (81-99); MONOCYTES 4.5 % (0-12); NEUTROPHILS 77.2 % (39-80); PLATELET COUNT 159 K/uL (140-440); RBC 4.51 M/ul (4.3-5.7); RDW 13.6 (10.5-15.0)
[2023-05-30 12:17] LABS: ANION GAP 11.3 (7-21); BUN/CREATININE RATIO 25.58 (6.0-28.6); CREATININE, SERUM 0.86 mg/dL (0.55-1.02); POTASSIUM 4.3 mmol/L (3.5-5.1)
--- NOTE | 2023-05-30 13:20 | NUR ---
pt on bsc - void 75 ml and assisted back to chair, feet. up. call light in reach. denies needs.
--- NOTE | 2023-05-30 15:18 | NUR ---
PATIENT UP TO BSC WITH 1PA FOR VOID. HR REMIANED 130/132 WITH THIS ACTIVITY. PATIENT BACK TO BED AT THIS TIME, CALL LIGHT IN EASY REACH. NO OTHER NEEDS AT THIS TIME.
--- NOTE | 2023-05-30 15:40 | NUR ---
pt hr continues to be elevated, 115 hr, sats 98 and rr 27. pt denies needs. call light in reach - call to med surg for dr. anguiano to know that hr is increased.
--- NOTE | 2023-05-30 15:56 | NUR ---
dr anguiano here aware of pt vitals and hr 120-130. pt denies needs. call light in reach.
--- NOTE | 2023-05-30 16:33 | NUR ---
medications reconciled
--- NOTE | 2023-05-30 16:38 | NUR ---
Patient and daughter, Ericka, in room. Lives with daughter in a single level home, ramp into home and no stairs inside. Is normally independent. States she has a cane and a walker but is wanting a quad cane for better stability. Also requesting a shower chair. Information for [employer] provided for shower chair and possibly quad cane. Currently on oxygen. States she would like to use [facility] if she needs oxygen at home. Patient states she is still able to drive, however had a recent ankle injury and Ericka has been transporting patient. Both deny any financial difficulties. Patient normally gets medications through [facility]. [facility] [place].
--- NOTE | 2023-05-30 17:06 | NUR ---
pt hob up for meal - visiting with daughter, denies needs - alert and oriented, hr 130s at rest. new order for dig given. pt eating well. call light in reach .
--- NOTE | 2023-05-30 17:27 | NUR ---
PATIENT SITTING UP IN BED EATING DINNER. DAUGHTER AT BEDSIDE.
--- NOTE | 2023-05-30 18:31 | NUR ---
no change in hr 120-130's - denies needs, talking on phone - ate dinner well. has been up to bsc and call light in reach. 02 2l nc 98%.
--- NOTE | 2023-05-30 19:15 | NUR ---
DR TANG HERE TO REVIEW HR AND CHOKE REAMER/VITALS WITH RN, NO CHANGES - DR AWARE OF HR 130, PT DENIES NEEDS. REPORT TO ADALI REYES.
--- NOTE | 2023-05-30 19:30 | NUR ---
PT ASSESSED AND FOUND TO BE SITTING IN HOSPITAL BED AWAKE, ALERT AND ORIENTED X 4 WITH A GCS OF 15. PT DENIES ANY SOB, CP OR DIZZINESS AT THIS TIME AND STATES SHE IS RESTING COMFORTABLY. NURSE CALL LIGHT PLACED AT PTS SIDE. SAFETY CHECK PERFORMED AND MONITOR LIMITS CHECKED.
--- NOTE | 2023-05-30 21:09 | EKG ---
[facility] [address] [place], [place] [address] Signed Atrial flutter with 2:1 AV conduction Low voltage QRS Nonspecific ST and T wave abnormality Abnormal ECG When compared with ECG of 29-MAY-2023 17:53, No significant change was found Confirmed by COURT TANG MD ([id number]) on 05/30/2023 9:09:00 PM Electronically Signed By: COURT TANG 05/30/232108 PATIENT NAME: TAMMY TY Electrocardiogram DATE OF : 38 PHYSICIAN: COURT TANG REPORT #: [id number] REPORT IS CONFIDENTIAL AND NOT TO BE RELEASED WITHOUT AUTHORIZATION
[2023-05-31] VITALS (12 sets, daily range): BP systolic 109–157; BP diastolic 78–119
--- NOTE | 2023-05-31 06:36 | NUR ---
PT REMAINS ALERT AND ORIENTED X 4 WITH A GCS OF 15. PT FOLLOWS COMMANDS AND IS PLEASENT TO WORK WITH. PT HAS BEEN IN A-FLUTTER WITH RATES BETWEEN 100 TO 130 THROUGHOUT THE NIGHT. PT WITH NO COMPLAINTS AND DENIES PAIN. PT HAS BEEN NORMOTENSIVE AND A-FEBRILE. PT ABLE TO AMBULATE SELF TO TOILET. PT WITH ADEQUATE U/O. PT ABLE TO TURN SELF FROM SIDE TO SIDE IN ORDER TO MAINTAIN SKIN INTEGRITY. LABS: NO NEW LABS TO REPORT.
--- NOTE | 2023-05-31 07:20 | NUR ---
report from flower candelario, pt up in resting denies any complaints, call light in reach - alert and oriented. meal to pt. hr continues at 133.
--- NOTE | 2023-05-31 09:00 | NUR ---
RN WAITING FOR PHARMACY FOR NEW MED ORDERS, LEIGHA FROM ECHO COMING TO DO STAT ECHO - PT TO BED, ROOM DARKENED AND QUESTIONS ABOUT TEST ANSWERED. DENIES NEEDS - WILL GIVE NEW MEDS SOON POSSIBLE,
--- NOTE | 2023-05-31 09:15 | NUR ---
PATIENT UP TO BR WITH SBC FOR VOID. HR 130 WITH THIS ACTIVITY. GOWN AND BRIEF CHANGED. CLEAN LINEN. TEETH AND HAIR BRUSHED. PATIENT SITTING ON SIDE OF BED DRINKING COFFEE. CALL LIGHT IN EASY REACH
--- NOTE | 2023-05-31 11:00 | NUR ---
Spoke with pt. She denies needs, but would like a quad cane. Updated Dr. Kidd and RX written. She would like to order from [facility]. Will send rx.
--- NOTE | 2023-05-31 11:56 | NUR ---
PATIENT INTO BR WITH SBA. VOID OF 100ML CHARTED. PATIENT SITTING IN RECLINER FOR LUNCH AT THIS TIME. CALL LIGHT IN EASY REACH
--- NOTE | 2023-05-31 13:00 | NUR ---
PT AMB TO BR, DENIES NEEDS, HR 133 DR TANG HERE IN DEPT. PT DAUGHTER AT BEDSIDE. CALL LIGHT IN REACH VOID X1 AND + FLATUS.
--- NOTE | 2023-05-31 14:01 | NUR ---
THIS RN CONFIRMED APPTS WITH PCP - DR MARY JANE SALGADO. AT 10:[address] LUIS ANTONIO SALGADO. 3:30 PM ROMEL URENA -
--- NOTE | 2023-05-31 14:16 | NUR ---
PT TO BR TO HAVE BM - DENIES NEEDS, HR 130 PT UP IN WITH DAUGHTER CALL LIGHT IN REACH.
--- NOTE | 2023-05-31 14:45 | NUR ---
PT AMB FROM [facility] TO BED, DENIES PAIN, SOB OR NEEDS, CALL LIGHT IN REACH - HR 124 DTG IN ROOM.
--- NOTE | 2023-05-31 15:04 | NUR ---
DR TANG IN ROOM WITH PT AND FAMILY - RN ATTEMPTING TO FIND ECHO REPORT FROM [facility].
--- NOTE | 2023-05-31 15:23 | NUR ---
DR TANG GIVEN PAPER COPY OF ECHO FROM THIS AM. PT AND FAMILY AWARE AND PLAN FOR DC HOME.
[2023-05-31] MEDS ORDERED: AMIODARONE HCL200 MG PO (15:32)
[2023-05-31] MEDS ORDERED: DIGOX250 MCG PO (15:33)
[2023-05-31] MEDS ORDERED: METOPROLOL TART50 MG PO (15:34)
[2023-05-31] MEDS ORDERED: CARVEDILOL25 MG PO (15:34)
--- NOTE | 2023-05-31 15:39 | NUR ---
NOTIFIED BECKA IN PHARMACY THAT DR TANG ASKED THIS RN TO GIVE 2100 MEDS BEFORE DC HOME NOW. - PHARMACY WILL BE HERE FOR TEACHING.
--- NOTE | 2023-05-31 15:56 | NUR ---
PATIENT SITTING AT SIDE OF BED. VITALS CHARTED, IV REMOVED, AND PATIENT IS DRESSED IN PERSONAL CLOTHING, WAITING FOR D/C. DAUGHTER IN ROOM. CALL LIGHT IN EASY REACH
== END 2023-05-31 16:25 | disposition home or self-care (01) ==
LOC: ED 17:51 → CCU 17:53 → MS 17:53 → CCU 05-30 10:35
PROVIDERS: Emergency Medicine; ADMIT Internal Medicine; ATTEND Internal Medicine
DX: I48.92 Unspecified atrial flutter (principal); R79.89 Other specified abnormal findings of blood chemistry; I10 Essential (primary) hypertension; E11.9 Type 2 diabetes mellitus without complications; Z79.899 Other long term (current) drug therapy; Z79.01 Long term (current) use of anticoagulants
CPT/HCPCS: 36415; 71045; 80048; 80053; 83735; 83880; 84484; 85025; 85610; 85730; 93005; 93010; 93306; 96374; 96375; 96376; 99285-25; A9270; G0378; J0153; J0282; J1160; J7040